=== PATIENT | male | born 1940 | race Native Hawaiian/Other Pacific Islander ===

== ENCOUNTER 2018-08-29 14:38 | Inpatient (IN) | payer OTHER ==
[2018-08-29 14:44] VITALS: BMI 15.5
--- NOTE | 2018-08-29 15:12 | ED PDOC ---
Arrival/HPI - General Time Seen by Provider: 08/29/18 15:01 Historian: Patient - History of Present Illness Narrative History of Present Illness (Text): 08/29/18 15:03 78 y/o male, pmh including htn/hld/dm/ckd, nkda, Bahamian mandarin speaking, c/o dizziness started 9pm last night. Pt. is here with the daughter in law, speaking in Bahamian mandarin, admits fatigue and dizziness, stated that he started to complain dizziness, room spinning sensation, no nausea or vomiting, no fever or chills, no chest pain shortness of breath, no palpitation, no diarrhea, no other medical or psychological complaints. Past Medical History - Provider Review Nursing Documentation Reviewed: Yes - Cardiac Hx Hypertension: Yes - Endocrine/Metabolic Hx Diabetes Mellitus Type 2: Yes - Psychiatric Hx Substance Use: No Family/Social History - Physician Review Nursing Documentation Reviewed: Yes Family/Social History: Unknown Family HX Smoking Status: Never Smoked Hx Alcohol Use: No Hx Substance Use: No Allergies/Home Meds Allergies/Adverse Reactions: Allergies No Known Allergies Allergy (Verified 08/29/18 15:02) Home Medications: Home Meds Medication Instructions Recorded Confirmed Unobtainable 08/29/18 08/29/18 Review of Systems - Review of Systems Constitutional: absent: Fatigue, Fevers Eyes: absent: Vision Changes ENT: absent: Hearing Changes Respiratory: absent: SOB, Cough Cardiovascular: absent: Chest Pain Gastrointestinal: absent: Abdominal Pain, Diarrhea, Nausea, Vomiting Musculoskeletal: absent: Arthralgias Skin: absent: Rash, Pruritis Neurological: Dizziness. absent: Headache, Focal Weakness, Gait Changes, Speech Changes, Facial Droop, Disequilibrium, Seizure Psychiatric: absent: Anxiety, Depression, Suicidal Ideation Physical Exam Vital Signs Reviewed: Yes Vital Signs Temp Pulse Resp BP Pulse Ox 08/29/18 14:41 98.3 F 75 18 133/82 100 Temperature: Afebrile Blood Pressure: Normal Pulse: Regular Respiratory Rate: Normal Appearance: Positive for: Well-Appearing, Non-Toxic, Comfortable Pain Distress: None Mental Status: Positive for: Alert and Oriented X 3 - Systems Exam Head: Present: Atraumatic, Normocephalic Pupils: Present: PERRL Extroacular Muscles: Present: EOMI Conjunctiva: Present: Normal Mouth: Present: Moist Mucous Membranes Neck: Present: Normal Range of Motion Respiratory/Chest: Present: Clear to Auscultation, Good Air Exchange. No: Respiratory Distress, Accessory Muscle Use Cardiovascular: Present: Regular Rate and Rhythm, Normal S1, S2. No: Murmurs Abdomen: No: Tenderness, Distention, Peritoneal Signs Back: Present: Normal Inspection Upper Extremity: Present: Normal Inspection. No: Cyanosis, Edema Lower Extremity: Present: Normal Inspection. No: Edema Neurological: Present: GCS=15, CN II-XII Intact, Speech Normal, Motor Func Grossly Intact, Normal Cerebellar Funct, Gait Normal, Memory Normal Skin: Present: Warm, Dry, Normal Color. No: Rashes Psychiatric: Present: Alert, Oriented x 3, Normal Insight, Normal Concentration Medical Decision Making ED Course and Treatment: 08/29/18 15:14 ICH vs. Dehydration vs. UTI vs. pneumonia -labs -ekg -ct head -chest ray -IVF/meclizine -Observe and reassess 08/29/18 16:22 -EKG: NSR @ 74 BPM, LVH, no ST elevation or depression, no T wave inversion. -CT head No acute intracranial abnormality.If there is a persistent focal neurologic deficit and an ongoing clinical concern for acute infarction, an MRI of the brain without intravenous contrast would be a more sensitive modality for evaluation of hyperacute/acute ischemic infarction. Mild chronic microangiopathic changes and mild age-related global parenchymal volume loss. Chronic lacunar infarctions in the right rasmussen radiata, right external capsule, left basal ganglia and left meng lazaro. -Chest xray Ill-defined airspace disease in the right lower lobe could represent atelectasis or pneumonia. Follow-up after medical management is recommended to ensure complete resolution. -Labs are nonsignificant except BUN 50 and creatine 2.1 with no previous comparison -UA +UTI -IV rocephine and azithromycin ordered. -NIHSS is zero -Pt. still feeling dizziness after the IVF and meclizine, no complete resolution. 08/29/18 18:29 -I spoke to the daughter and the patient, they agreed to be admitted for observation for further evaluation and treatment. 08/29/18 18:43 -I spoke to the hospitalist, Dr. Stewart, discussed about the case/labs/radiology results, still symptomatic for dizziness and risk for fall, will admit the patient for observation. - RAD Interpretation Radiology Orders: CT head: Date of service: 08/29/2018 PROCEDURE: CT HEAD WITHOUT CONTRAST. HISTORY: dizziness since 9pm COMPARISON: None available. TECHNIQUE: Axial computed tomography images were obtained through the head/brain without intravenous contrast. Radiation dose: Total exam DLP = 847.99 mGy-cm. This CT exam was performed using one or more of the following dose reduction techniques: Automated exposure control, adjustment of the mA and/or kV according to patient size, and/or use of iterative reconstruction technique. FINDINGS: HEMORRHAGE: No intracranial hemorrhage. BRAIN: There are mild chronic microangiopathic changes. There are chronic lacunar infarctions in the right rasmussen radiata, right external capsule, left basal ganglia and left meng lazaro. There is no mass, mass effect or abnormal extra- axial fluid collection. There are coarse atherosclerotic calcifications in the cavernous carotid arteries. VENTRICLES: There is mild age-related global parenchymal volume loss and proportionate enlargement of the ventricles and cortical sulci. CALVARIUM: There is no calvarial fracture or extracranial soft tissue swelling. PARANASAL SINUSES: Predominantly clear. MASTOID AIR CELLS: Predominantly clear. OTHER FINDINGS: None. IMPRESSION: No acute intracranial abnormality.If there is a persistent focal neurologic deficit and an ongoing clinical concern for acute infarction, an MRI of the brain without intravenous contrast would be a more sensitive modality for evaluation of hyperacute/acute ischemic infarction. Mild chronic microangiopathic changes and mild age-related global parenchymal volume loss. Chronic lacunar infarctions in the right rasmussen radiata, right external capsule, left basal ganglia and left meng lazaro. Chest xray: Date of service: 08/29/2018 HISTORY: dizziness COMPARISON: No prior. FINDINGS: LUNGS: The lungs are well inflated. There is ill-defined airspace disease in the right lower lobe. PLEURA: No pleural effusions or pneumothorax. CARDIOVASCULAR: The heart is normal in size. There are aortic atherosclerotic calcifications present. OSSEOUS STRUCTURES: Within normal limits for the patient's age. VISUALIZED UPPER ABDOMEN: Normal. OTHER FINDINGS: None. IMPRESSION: Ill-defined airspace disease in the right lower lobe could represent atelectasis or pneumonia. Follow-up after medical management is recommended to ensure complete resolution. Plate Maker: Radiologist NIHSS Scale ([place]) Time Performed: 17:00 - How Severe is the Stoke Baseline Level of Consciousness: 0=Alert LOC to Questions: 0=Both comments correct LOC to commands: 0=Obeys both correctly Best Gaze: 0=Normal Visual: 0=No visual loss Facial: 0=Normal Motor Arm - Left: 0=No drift Motor Arm - Right: 0=No drift Motor Leg - Left: 0=No drift Motor Leg - Right: 0=No drift Limb Ataxia: 0=Absent Sensory: 0=Normal Best Language: 0=No aphasia Dysarthia: 0=Normal articulation Extinction & Inattention (Neglect): 0=Normal, no object Score: 0 Risk Level: No Stroke Risk - PA / PILL PACKER / Resident Statement MD/DO has reviewed & agrees with the documentation as recorded. Disposition/Present on Arrival - Present on Arrival Any Indicators Present on Arrival: No History of DVT/PE: No History of Uncontrolled Diabetes: No Urinary Catheter: No History of Decub. Ulcer: No History Surgical Site Infection Following: None - Disposition Have Diagnosis and Disposition been Completed?: Yes Diagnosis: UTI (urinary tract infection), Pneumonia, Dizziness Disposition: HOSPITALIZED Disposition Time: 16:23 Patient Plan: Admission, Observation, Telemetry Patient Problems: Current Active Problems Problem Status Onset Dizziness Acute Pneumonia Acute UTI (urinary tract infection) Acute Condition: STABLE Referrals: FAMILY PROVIDER,NO [Primary Care Provider] - Follow up with primary
[2018-08-29] MEDS ORDERED: Sodium Chloride 0.9% 1,000 ML IV SCH ×2 (15:15→20:04)
[2018-08-29 16:01] LABS: BASO # 0.01 K/mm3 (0.0-2.0); BASO % 0.1 % (0.0-3.0); EOS # 0.1 (0.0-0.7); EOS % 0.8 % (1.5-5.0); HEMOGLOBIN 10.7 g/dL (14.0-18.0); LYMPH # 1.1 (1.2-3.4); LYMPH % 14.4 % (22.0-35.0); MEAN CELL VOLUME 90.3 fl (80.0-105.0); MEAN CORPUSCULAR HEMOGLOBIN 30.5 pg (25.0-35.0); MEAN CORPUSCULAR HGB CONC 33.8 g/dl (31.0-37.0); MEAN PLATELET VOLUME 9.8 fl (7.0-11.0); MONO # 0.3 (0.1-0.6); MONO % 3.7 % (1.0-6.0); PH,URINE 5.5 (4.7-8.0); RBC 3.51 10^6/uL (3.5-6.1); RED CELL DISTRIBUTION WIDTH 12.8 % (11.5-14.5); URINE BILIRUBIN NEGATIVE (NEGATIVE); URINE BLOOD NEGATIVE (NEGATIVE); URINE GLUCOSE (UA) NEGATIVE (NEGATIVE); URINE LEUKOCYTE ESTERASE SMALL Leu/uL (NEGATIVE); URINE PROTEIN 100 mg/dL (<30 mg/dL); URINE UROBILINOGEN 0.2 E.U./dL (<1 E.U./dL); WHITE BLOOD COUNT 7.5 10^3/uL (4.5-11.0)
[2018-08-29 16:04] LABS: ALB/GLOB RATIO 1.3 (1.1-1.8); ALBUMIN 4.5 g/dL (3.0-4.8); ALT/SGPT 25 U/L (7-56); AST/SGOT 21 U/L (17-59); BLOOD UREA NITROGEN 50 mg/dL (7-21); CALCIUM 10.1 mg/dL (8.4-10.5); GFR NON-AFRICAN AMERICAN 31
[2018-08-29 16:06] LABS: URINE APPEARANCE CLEAR (CLEAR); URINE COLOR YELLOW (YELLOW)
[2018-08-29] MEDS ORDERED: Sodium Chloride 0.9% 1,000 ML IV STA (16:10)
--- NOTE | 2018-08-29 16:14 | RAD ---
Date of service: 08/29/2018 HISTORY: dizziness COMPARISON: No prior. FINDINGS: LUNGS: The lungs are well inflated. There is ill-defined airspace disease in the right lower lobe. PLEURA: No pleural effusions or pneumothorax. CARDIOVASCULAR: The heart is normal in size. There are aortic atherosclerotic calcifications present. OSSEOUS STRUCTURES: Within normal limits for the patient's age. VISUALIZED UPPER ABDOMEN: Normal. OTHER FINDINGS: None. IMPRESSION: Ill-defined airspace disease in the right lower lobe could represent atelectasis or pneumonia. Follow-up after medical management is recommended to ensure complete resolution.
[2018-08-29 16:15] LABS: TROPONIN I < 0.01 ng/mL
--- NOTE | 2018-08-29 16:18 | CT ---
Date of service: 08/29/2018 PROCEDURE: CT HEAD WITHOUT CONTRAST. HISTORY: dizziness since 9pm COMPARISON: None available. TECHNIQUE: Axial computed tomography images were obtained through the head/brain without intravenous contrast. Radiation dose: Total exam DLP = 847.99 mGy-cm. This CT exam was performed using one or more of the following dose reduction techniques: Automated exposure control, adjustment of the mA and/or kV according to patient size, and/or use of iterative reconstruction technique. FINDINGS: HEMORRHAGE: No intracranial hemorrhage. BRAIN: There are mild chronic microangiopathic changes. There are chronic lacunar infarctions in the right rasmussen radiata, right external capsule, left basal ganglia and left meng lazaro. There is no mass, mass effect or abnormal extra-axial fluid collection. There are coarse atherosclerotic calcifications in the cavernous carotid arteries. VENTRICLES: There is mild age-related global parenchymal volume loss and proportionate enlargement of the ventricles and cortical sulci. CALVARIUM: There is no calvarial fracture or extracranial soft tissue swelling. PARANASAL SINUSES: Predominantly clear. MASTOID AIR CELLS: Predominantly clear. OTHER FINDINGS: None. IMPRESSION: No acute intracranial abnormality.If there is a persistent focal neurologic deficit and an ongoing clinical concern for acute infarction, an MRI of the brain without intravenous contrast would be a more sensitive modality for evaluation of hyperacute/acute ischemic infarction. Mild chronic microangiopathic changes and mild age-related global parenchymal volume loss. Chronic lacunar infarctions in the right rasmussen radiata, right external capsule, left basal ganglia and left meng lazaro.
[2018-08-29] MEDS ORDERED: cefTRIAXone 1 gm 1 GM/100 ML BAG IVPB STA (16:21)
[2018-08-29] MEDS ORDERED: Azithromycin 500MG/NS 250ml 500 MG/250 ML BAG IVPB STA (16:21)
--- NOTE | 2018-08-29 19:10 | CARD ---
APPROVED REPORT Date of service: 08/29/2018 EKG Measurement Heart [id number] <Conclusion> Normal sinus rhythm Leftward axis Left ventricular hypertrophy with repolarization abnormality Abnormal ECG
--- NOTE | 2018-08-29 19:49 | CP.PCM.HP ---
<Dagoberto Krishnamurthy - Last Filed: 08/29/18 21:12> History of Present Illness - History of Present Illness History of Present Illness: Dagoberto Krishnamurthy DO PGY1. H&P for Dr Fidelia Julien: Dizziness x1 day 78 y/o Male with PMH of HTN, HLD, DM, CKD presents to the ED accompanied by his daughter in law for dizziness x1 day. There is no family members at the bedside. [place]ian earth moving technician called and was not able to communicate with the patient. Family member called but no answer. As per ED note, patient was brought in for dizziness and that started last night with room spinning sensation. It's assoc iated with fatigue. Denies palpitations, SOB, chest pain, fever, chills, N/V/D. ROS unobtainable due to lack of proper communication, will continue to attempt to contact family for complete history. PMH: HTN, HLD, DM, CKD PSH: unknown Meds: unknown All: NKDA FH: unknown SH: no smoking/alcohol/drug use Present on Admission - Present on Admission Any Indicators Present on Admission: No Review of Systems - Review of Systems Systems not reviewed;Unavailable: Language Barrier Past Patient History - Past Social History Smoking Status: Never Smoked - CARDIAC Hx Hypertension: Yes - ENDOCRINE/METABOLIC Hx Diabetes Mellitus Type 2: Yes - PSYCHIATRIC Hx Substance Use: No - SURGICAL HISTORY Hx Surgeries: No Meds Allergies/Adverse Reactions: Allergies Allergy/AdvReac Type Severity Reaction Status Date / Time No Known Allergies Allergy Verified 08/29/18 15:02 Physical Exam - Constitutional Appears: Well, Non-toxic - Head Exam Head Exam: ATRAUMATIC, NORMAL INSPECTION, NORMOCEPHALIC - Eye Exam Eye Exam: EOMI, Normal appearance, PERRL Pupil Exam: NORMAL ACCOMODATION, PERRL - ENT Exam ENT Exam: Mucous Membranes Moist - Neck Exam Neck exam: Positive for: Normal Inspection - Respiratory Exam Respiratory Exam: Clear to Auscultation Bilateral, NORMAL BREATHING PATTERN - Cardiovascular Exam Cardiovascular Exam: REGULAR RHYTHM, +S1, +S2 - GI/Abdominal Exam GI & Abdominal Exam: Normal Bowel Sounds, Soft. absent: Tenderness - Extremities Exam Extremities exam: Positive for: normal capillary refill, normal inspection, pedal pulses present - Back Exam Back exam: NORMAL INSPECTION - Neurological Exam Neurological exam: Reflexes Normal - Psychiatric Exam Psychiatric exam: Flat Affect - Skin Skin Exam: Dry, Intact, Normal Color, Warm Results - Vital Signs Recent Vital Signs: Last Vital Signs Temp 98.3 F 08/29/18 14:41 Pulse 72 08/29/18 17:11 Resp 18 08/29/18 17:11 BP 153/69 H 08/29/18 17:11 Pulse Ox 98 08/29/18 17:11 - Labs Result Diagrams: 08/29/18 15:41 08/29/18 15:41 Labs: Laboratory Results - last 24 hr 08/29/18 08/29/18 08/29/18 15:16 15:41 15:41 WBC RBC Hgb Hct MCV MCH MCHC RDW Plt Count MPV Neut % (Auto) Lymph % (Auto) Wilkes % (Auto) Eos % (Auto) Baso % (Auto) Lymph # (Auto) Wilkes # (Auto) Eos # (Auto) Baso # (Auto) Absolute Neuts (auto) Sodium 140 Potassium 4.4 Chloride 105 Carbon Dioxide 22 Anion Gap 18 BUN 50 H Creatinine 2.1 H Est GFR ( Amer) 37 Est GFR (Non-Af Amer) 31 POC Glucose (mg/dL) 174 H Random Glucose 175 H Calcium 10.1 Magnesium 2.1 Total Bilirubin 0.2 AST 21 ALT 25 Alkaline Phosphatase 67 Troponin I < 0.01 Total Protein 7.8 Albumin 4.5 Globulin 3.3 Albumin/Globulin Ratio 1.3 Urine Color Yellow Urine Appearance Clear Urine pH 5.5 Ur Specific [place] >= 1.030 Urine Protein 100 H Urine Glucose (UA) Negative Urine Ketones Trace H Urine Blood Negative Urine Nitrate Negative Urine Bilirubin Negative Urine Urobilinogen 0.2 Ur Leukocyte Esterase Small H Urine RBC TEST NOT PERFORMED Urine WBC 5 - 10 H Ur Epithelial Cells 10 - 12 H 08/29/18 15:41 WBC 7.5 RBC 3.51 Hgb 10.7 L Hct 31.7 L MCV 90.3 MCH 30.5 MCHC 33.8 RDW 12.8 Plt Count 214 MPV 9.8 Neut % (Auto) 81.0 H Lymph % (Auto) 14.4 L Wilkes % (Auto) 3.7 Eos % (Auto) 0.8 L Baso % (Auto) 0.1 Lymph # (Auto) 1.1 L Wilkes # (Auto) 0.3 Eos # (Auto) 0.1 Baso # (Auto) 0.01 Absolute Neuts (auto) 6.09 Sodium Potassium Chloride Carbon Dioxide Anion Gap BUN Creatinine Est GFR ( Amer) Est GFR (Non-Af Amer) POC Glucose (mg/dL) Random Glucose Calcium Magnesium Total Bilirubin AST ALT Alkaline Phosphatase Troponin I Total Protein Albumin Globulin Albumin/Globulin Ratio Urine Color Urine Appearance Urine pH Ur Specific [place] Urine Protein Urine Glucose (UA) Urine Ketones Urine Blood Urine Nitrate Urine Bilirubin Urine Urobilinogen Ur Leukocyte Esterase Urine RBC Urine WBC Ur Epithelial Cells Assessment & Plan - Assessment and Plan (Free Text) Assessment: 78 y/o Mlae with PMH of HTN, HLD, DM, CKD presents to the ED for dizziness x1 day. Admitted for further work up Plan: Dizziness: -CT head: no ICH, chronic lacunar infarctions in R rasmussen radiata/ext capsule, L basal ganglia/meng lazaro -neuro check q4h -orthostatics VS -CXR: right lung consolidations PNA vs atelectasis -EKG: NSR@74, LVH w/early repolarization, Lt axis deviation -UA: +LE, WBC -Trops negative x1. continue to trend -neuro consulted, Dr Love -f/u procal, TSH, blood/urine cx h/o HTN: -patient hypertensive. unknown home meds. verify in am -hydralazine prn for SBP> 160 -amlodipine 10 mg h/o DM -accucheck -ISS-L -A1C -verify home meds HLD: -lipid profile -lipitor 20mg CKD: -BUN/Cr 50/2.1 (unknown baseline) -likely hypertensive kidney disease -Renal US Anemia: -H/H 10.7/31.7 on admission -f/u iron studies, vit B12, folate -PT/INR PPX: -DVT: lovenox, SCD -GI: not indicated -PT eval/treat -HHD/Renal diet Case reviewed and plan discussed with attending Dr Fidelia Krishnamurthy, <Sheng Mistry - Last Filed: 08/30/18 19:00> Results - Vital Signs Recent Vital Signs: Last Vital Signs Temp 97.9 F 08/30/18 16:05 Pulse 85 08/30/18 18:00 Resp 17 08/30/18 16:05 BP 123/63 08/30/18 16:05 Pulse Ox 99 08/30/18 16:05 - Labs Result Diagrams: 08/30/18 06:00 08/30/18 06:00 Labs: Laboratory Results - last 24 hr 08/29/18 08/29/18 08/29/18 20:46 21:06 21:25 WBC RBC Hgb Hct MCV MCH MCHC RDW Plt Count MPV Neut % (Auto) Lymph % (Auto) Wilkes % (Auto) Eos % (Auto) Baso % (Auto) Lymph # (Auto) Wilkes # (Auto) Eos # (Auto) Baso # (Auto) Absolute Neuts (auto) PT 11.0 INR 0.99 APTT 37.3 Sodium Potassium Chloride Carbon Dioxide Anion Gap BUN Creatinine Est GFR ( Amer) Est GFR (Non-Af Amer) POC Glucose (mg/dL) Random Glucose Calcium Phosphorus Magnesium Iron TIBC % Saturation Ferritin Total Bilirubin AST ALT Alkaline Phosphatase Troponin I Total Protein Albumin Globulin Albumin/Globulin Ratio Triglycerides Cholesterol LDL Cholesterol Direct HDL Cholesterol Vitamin B12 Folate Procalcitonin < 0.05 L TSH 3rd Generation Influenza Typ A,B (EIA) Negative for flu a/b 08/29/18 08/30/18 08/30/18 21:30 06:00 06:00 WBC RBC Hgb Hct MCV MCH MCHC RDW Plt Count MPV Neut % (Auto) Lymph % (Auto) Wilkes % (Auto) Eos % (Auto) Baso % (Auto) Lymph # (Auto) Wilkes # (Auto) Eos # (Auto) Baso # (Auto) Absolute Neuts (auto) PT INR APTT Sodium 143 Potassium 4.0 Chloride 111 H Carbon Dioxide 24 Anion Gap 12 BUN 40 H Creatinine 1.4 Est GFR ( Amer) 60 Est GFR (Non-Af Amer) 49 POC Glucose (mg/dL) 198 H Random Glucose 128 H Calcium 9.5 Phosphorus 3.5 Magnesium 2.3 H Iron 90 TIBC 276 % Saturation 33 Ferritin 27.7 Total Bilirubin 0.3 AST 29 ALT 24 Alkaline Phosphatase 73 Troponin I < 0.01 Total Protein 7.3 Albumin 4.0 Globulin 3.3 Albumin/Globulin Ratio 1.2 Triglycerides 76 Cholesterol 128 L LDL Cholesterol Direct 70 HDL Cholesterol 33 Vitamin B12 270 Folate 14.7 Procalcitonin TSH 3rd Generation Influenza Typ A,B (EIA) 08/30/18 08/30/1819 06:00 06:00 07:23 WBC 5.2 D RBC 3.55 Hgb 10.7 L Hct 32.1 L MCV 90.4 MCH 30.1 MCHC 33.3 RDW 12.7 Plt Count 201 MPV 9.7 Neut % (Auto) 75.4 H Lymph % (Auto) 19.9 L Wilkes % (Auto) 3.5 Eos % (Auto) 1.0 L Baso % (Auto) 0.2 Lymph # (Auto) 1.0 L Wilkes # (Auto) 0.2 Eos # (Auto) 0.1 Baso # (Auto) 0.01 Absolute Neuts (auto) 3.91 PT INR APTT Sodium Potassium Chloride Carbon Dioxide Anion Gap BUN Creatinine Est GFR ( Amer) Est GFR (Non-Af Amer) POC Glucose (mg/dL) 154 H Random Glucose Calcium Phosphorus Magnesium Iron TIBC % Saturation Ferritin Total Bilirubin AST ALT Alkaline Phosphatase Troponin I Total Protein Albumin Globulin Albumin/Globulin Ratio Triglycerides Cholesterol LDL Cholesterol Direct HDL Cholesterol Vitamin B12 Folate Procalcitonin TSH 3rd Generation 3.14 Influenza Typ A,B (EIA) 08/30/18 08/30/18 11:15 13:38 WBC RBC Hgb Hct MCV MCH MCHC RDW Plt Count MPV Neut % (Auto) Lymph % (Auto) Wilkes % (Auto) Eos % (Auto) Baso % (Auto) Lymph # (Auto) Wilkes # (Auto) Eos # (Auto) Baso # (Auto) Absolute Neuts (auto) PT INR APTT Sodium Potassium Chloride Carbon Dioxide Anion Gap BUN Creatinine Est GFR ( Amer) Est GFR (Non-Af Amer) POC Glucose (mg/dL) 382 H 310 H Random Glucose Calcium Phosphorus Magnesium Iron TIBC % Saturation Ferritin Total Bilirubin AST ALT Alkaline Phosphatase Troponin I Total Protein Albumin Globulin Albumin/Globulin Ratio Triglycerides Cholesterol LDL Cholesterol Direct HDL Cholesterol Vitamin B12 Folate Procalcitonin TSH 3rd Generation Influenza Typ A,B (EIA) Attending/Attestation - Attestation I have personally seen and examined this patient.: Yes I have fully participated in the care of the patient.: Yes I have reviewed all pertinent clinical information: Yes Notes (Text): 08/30/18 19:00 Seen and examined. Discussed with resident. A&P as above.
[2018-08-29 21:23] LABS: INR 0.99; PARTIAL THROMBOPLASTIN TIME 37.3 Seconds (26.9-38.3)
[2018-08-29] MEDS: Insulin Reg-LOW-Coverage SC SCH (21:45)
[2018-08-30] MEDS ORDERED: Pneumococcal 23-Valent Vaccine IM ONE (00:57)
[2018-08-30 06:49] LABS: BASO # 0.01 K/mm3 (0.0-2.0); BASO % 0.2 % (0.0-3.0); EOS # 0.1 (0.0-0.7); HEMOGLOBIN 10.7 g/dL (14.0-18.0); LYMPH % 19.9 % (22.0-35.0); MEAN CELL VOLUME 90.4 fl (80.0-105.0); MEAN CORPUSCULAR HEMOGLOBIN 30.1 pg (25.0-35.0); MEAN CORPUSCULAR HGB CONC 33.3 g/dl (31.0-37.0); MEAN PLATELET VOLUME 9.7 fl (7.0-11.0); MONO # 0.2 (0.1-0.6); MONO % 3.5 % (1.0-6.0); RBC 3.55 10^6/uL (3.5-6.1); RED CELL DISTRIBUTION WIDTH 12.7 % (11.5-14.5); WHITE BLOOD COUNT 5.2 10^3/uL (4.5-11.0)
[2018-08-30 06:51] LABS: IRON 90 ug/dL (45-180)
[2018-08-30 07:00] LABS: % IRON SATURATION 33 % (20-55); TOTAL IRON BINDING CAPACITY 276 ug/dL (261-462)
[2018-08-30 07:05] LABS: LDL CHOLESTEROL 70 mg/dL (0-129); TROPONIN I < 0.01 ng/mL
[2018-08-30 07:14] LABS: ALB/GLOB RATIO 1.2 (1.1-1.8); ALT/SGPT 24 U/L (7-56); AST/SGOT 29 U/L (17-59); BLOOD UREA NITROGEN 40 mg/dL (7-21); CALCIUM 9.5 mg/dL (8.4-10.5); GFR NON-AFRICAN AMERICAN 49; HDL CHOLESTEROL 33 mg/dL (29-60)
[2018-08-30] MEDS: Insulin Reg-LOW-Coverage SC SCH ×4 (07:30→21:47)
[2018-08-30] MEDS: Enoxaparin 40 mg Syringe SC SCH (10:28)
[2018-08-30 13:10] LABS: FERRITIN 27.7 ng/mL
[2018-08-30 13:46] LABS: FOLATE 14.7 ng/mL
--- NOTE | 2018-08-30 14:26 | CP.PCM.PN ---
Subjective - Date & Time of Evaluation Date of Evaluation: 08/30/18 Time of Evaluation: 09:40 - Subjective Subjective: Dagoberto Krishnamurthy DO PGY1 Hospitalist Progress Note for Dr Casey Patient seen and examined at bedside. Salvadorean health promotion officer used in interview. Patient appears confused and does not know where he is nor the reason for being in a hospital. Family was contacted again to come to the hospital for further information. Objective - Vital Signs/Intake and Output Vital Signs (last 24 hours): Temp Pulse Resp BP Pulse Ox 98 F 73 18 157/66 H 98 08/30/18 08:11 08/30/18 08:11 08/30/18 08:11 08/30/18 10:28 08/30/18 08:11 - Medications Medications: Current Medications Amlodipine Besylate (Norvasc) 10 mg PO DAILY [facility] Last Admin: 08/30/18 10:28 Dose: 10 mg Aspirin (Ecotrin) 81 mg PO DAILY [facility] Last Admin: 08/30/18 13:49 Dose: 81 mg Atorvastatin Calcium (Lipitor) 20 mg PO DIN [facility] Last Admin: 08/29/18 21:39 Dose: 20 mg Enoxaparin Sodium (Lovenox) 40 mg SC DAILY [facility]; Protocol Last Admin: 08/30/18 10:28 Dose: Not Given Hydralazine HCl (Apresoline) 10 mg IVP Q6 PRN PRN Reason: SBP > 180 DBP > 100 Insulin Human Regular (Humulin R Low) 0 units SC ACHS [facility]; Protocol Last Admin: 08/30/18 12:39 Dose: 7 units - Labs Labs: 08/30/18 06:00 08/30/18 06:00 PT 11.0 SECONDS (9.4-12.5) 08/29/18 21:06 INR 0.99 08/29/18 21:06 APTT 37.3 Seconds (26.9-38.3) 08/29/18 21:06 - Constitutional Appears: Non-toxic, No Acute Distress, Confused - Head Exam Head Exam: ATRAUMATIC, NORMAL INSPECTION, NORMOCEPHALIC - Eye Exam Eye Exam: EOMI, Normal appearance, PERRL Pupil Exam: NORMAL ACCOMODATION, PERRL - ENT Exam ENT Exam: Normal Exam - Neck Exam Neck Exam: Normal Inspection - Respiratory Exam Respiratory Exam: Clear to Ausculation Bilateral, NORMAL BREATHING PATTERN - Cardiovascular Exam Cardiovascular Exam: REGULAR RHYTHM, +S1, +S2 - GI/Abdominal Exam GI & Abdominal Exam: Soft, Normal Bowel Sounds. absent: Tenderness - Extremities Exam Extremities Exam: Full ROM, Normal Capillary Refill, Normal Inspection. absent: Joint Swelling, Pedal Edema - Back Exam Back Exam: NORMAL INSPECTION - Neurological Exam Neurological Exam: Altered, Awake, Normal Gait - Psychiatric Exam Psychiatric exam: Depressed, Flat Affect - Skin Skin Exam: Dry, Intact, Normal Color, Warm Assessment and Plan - Assessment and Plan (Free Text) Assessment: 78 y/o Mlae with PMH of HTN, HLD, DM, CKD presents to the ED for dizziness x1 day. Admitted for further work up Plan: Dizziness: -CT head: no ICH, chronic lacunar infarctions in R rasmussen radiata/ext capsule, L basal ganglia/meng lazaro -neuro check q4h -orthostatics VS -CXR: right lung consolidations PNA vs atelectasis -EKG: NSR@74, LVH w/early repolarization, Lt axis deviation -UA: +LE, WBC -Trops negative x2 -neuro consulted, Dr Lvoe -f/u procal, blood/urine cx -flu a/b negative h/o HTN: -patient hypertensive. unknown home meds. verify in am -hydralazine prn for SBP> 160 -amlodipine 10 mg -asa h/o DM -accucheck -ISS-L -A1C -verify home meds HLD: -lipid profile -lipitor 20mg CKD: -BUN/Cr improved from 50/2.1 on admission to 40/1.4 -likely hypertensive kidney disease -f/u renal US Anemia: -H/H 10.7/31.7 on admission -f/u iron studies, vit B12, folate, TSH wnl -PT/INR wnl PPX: -DVT: lovenx, SCD -GI: not indicated -PT eval/treat -HHD/Renal diet -manager social media referral Case reviewed and plan discussed with attending Dr Jacinto Krishnamurthy,
--- NOTE | 2018-08-30 15:24 | CP.PCM.CON ---
History of Present Illness - History of Present Illness History of Present Illness: Neurology Consultation Note: Consult requested by Dr. Casey Mr. Mckeon is a 78-year-old Yi speaking man with a past medical history of HTN, HLD, DM, CKD who was brought to the ED by his [id number], complaining of dizziness for the past day and a sensation of spinning. Non-contrast CT scan of the head was done and it showed chronic bilateral subcortical lacunar infarcts. There were no acute findings. Labs showed acute kidney injury, as well as dehydration and hyperglycemia. Phone science interpreter was used, but could not communicate effectively with the patient. History was obtained from the chart and family report. Review of Systems - Review of Systems Systems not reviewed;Unavailable: Language Barrier Past Patient History - Past Social History Smoking Status: Never Smoked - CARDIAC Hx Hypertension: Yes - ENDOCRINE/METABOLIC Hx Diabetes Mellitus Type 2: Yes - MUSCULOSKELETAL/RHEUMATOLOGICAL Hx Falls: No - PSYCHIATRIC Hx Substance Use: No - SURGICAL HISTORY Hx Surgeries: No Meds Allergies/Adverse Reactions: Allergies Allergy/AdvReac Type Severity Reaction Status Date / Time No Known Allergies Allergy Verified 08/29/18 15:02 - Medications Medications: Current Medications Amlodipine Besylate (Norvasc) 10 mg PO DAILY [facility] Last Admin: 08/30/18 10:28 Dose: 10 mg Aspirin (Ecotrin) 81 mg PO DAILY [facility] Last Admin: 08/30/18 13:49 Dose: 81 mg Atorvastatin Calcium (Lipitor) 20 mg PO DIN [facility] Last Admin: 08/29/18 21:39 Dose: 20 mg Enoxaparin Sodium (Lovenox) 40 mg SC DAILY [facility]; Protocol Last Admin: 08/30/18 10:28 Dose: Not Given Hydralazine HCl (Apresoline) 10 mg IVP Q6 PRN PRN Reason: SBP > 180 DBP > 100 Insulin Human Regular (Humulin R Low) 0 units SC ACHS [facility]; Protocol Last Admin: 08/30/18 12:39 Dose: 7 units Physical Exam - Constitutional Appears: Well - Head Exam Head Exam: ATRAUMATIC, NORMAL INSPECTION, NORMOCEPHALIC - Eye Exam Eye Exam: EOMI, Normal appearance, PERRL Pupil Exam: NORMAL ACCOMODATION, PERRL - ENT Exam ENT Exam: Mucous Membranes Moist, Normal Exam - Neck Exam Neck exam: Positive for: Normal Inspection - Respiratory Exam Respiratory Exam: Clear to Auscultation Bilateral, NORMAL BREATHING PATTERN - Cardiovascular Exam Cardiovascular Exam: REGULAR RHYTHM, +S1, +S2 - GI/Abdominal Exam GI & Abdominal Exam: Normal Bowel Sounds, Soft. absent: Tenderness - Extremities Exam Extremities exam: Positive for: normal inspection - Back Exam Back exam: NORMAL INSPECTION - Neurological Exam Neurological exam: Alert, CN II-XII Intact, Normal Gait, Oriented x3, Reflexes Normal Additional comments: Nystagmus noted on right lateral gaze. - Psychiatric Exam Psychiatric exam: Normal Affect, Normal Mood - Skin Skin Exam: Dry, Intact, Normal Color, Warm Results - Vital Signs Recent Vital Signs: Last Vital Signs Temp 98 F 08/30/18 08:11 Pulse 73 08/30/18 08:11 Resp 18 08/30/18 08:11 BP 157/66 H 08/30/18 10:28 Pulse Ox 98 08/30/18 08:11 - Labs Result Diagrams: 08/30/18 06:00 08/30/18 06:00 Labs: Laboratory Results - last 24 hr 08/29/18 08/29/18 08/29/18 15:16 15:41 15:41 WBC RBC Hgb Hct MCV MCH MCHC RDW Plt Count MPV Neut % (Auto) Lymph % (Auto) [place] % (Auto) Eos % (Auto) Baso % (Auto) Lymph # (Auto) [place] # (Auto) Eos # (Auto) Baso # (Auto) Absolute Neuts (auto) PT INR APTT Sodium 140 Potassium 4.4 Chloride 105 Carbon Dioxide 22 Anion Gap 18 BUN 50 H Creatinine 2.1 H Est GFR ( Amer) 37 Est GFR (Non-Af Amer) 31 POC Glucose (mg/dL) 174 H Random Glucose 175 H Calcium 10.1 Phosphorus Magnesium 2.1 Iron TIBC % Saturation Ferritin Total Bilirubin 0.2 AST 21 ALT 25 Alkaline Phosphatase 67 Troponin I < 0.01 Total Protein 7.8 Albumin 4.5 Globulin 3.3 Albumin/Globulin Ratio 1.3 Triglycerides Cholesterol LDL Cholesterol Direct HDL Cholesterol Vitamin B12 Folate Procalcitonin TSH 3rd Generation Urine Color Yellow Urine Appearance Clear Urine pH 5.5 Ur Specific [place] >= 1.030 Urine Protein 100 H Urine Glucose (UA) Negative Urine Ketones Trace H Urine Blood Negative Urine Nitrate Negative Urine Bilirubin Negative Urine Urobilinogen 0.2 Ur Leukocyte Esterase Small H Urine RBC TEST NOT PERFORMED Urine WBC 5 - 10 H Ur Epithelial Cells 10 - 12 H Influenza Typ A,B (EIA) 08/29/18 08/29/18 08/29/18 15:41 20:46 21:06 WBC 7.5 RBC 3.51 Hgb 10.7 L Hct 31.7 L MCV 90.3 MCH 30.5 MCHC 33.8 RDW 12.8 Plt Count 214 MPV 9.8 Neut % (Auto) 81.0 H Lymph % (Auto) 14.4 L [place] % (Auto) 3.7 Eos % (Auto) 0.8 L Baso % (Auto) 0.1 Lymph # (Auto) 1.1 L [place] # (Auto) 0.3 Eos # (Auto) 0.1 Baso # (Auto) 0.01 Absolute Neuts (auto) 6.09 PT 11.0 INR 0.99 APTT 37.3 Sodium Potassium Chloride Carbon Dioxide Anion Gap BUN Creatinine Est GFR ( Amer) Est GFR (Non-Af Amer) POC Glucose (mg/dL) Random Glucose Calcium Phosphorus Magnesium Iron TIBC % Saturation Ferritin Total Bilirubin AST ALT Alkaline Phosphatase Troponin I Total Protein Albumin Globulin Albumin/Globulin Ratio Triglycerides Cholesterol LDL Cholesterol Direct HDL Cholesterol Vitamin B12 Folate Procalcitonin TSH 3rd Generation Urine Color Urine Appearance Urine pH Ur Specific [place] Urine Protein Urine Glucose (UA) Urine Ketones Urine Blood Urine Nitrate Urine Bilirubin Urine Urobilinogen Ur Leukocyte Esterase Urine RBC Urine WBC Ur Epithelial Cells Influenza Typ A,B (EIA) Negative for flu a/b 08/29/18 08/29/18 08/30/18 21:25 21:30 06:00 WBC RBC Hgb Hct MCV MCH MCHC RDW Plt Count MPV Neut % (Auto) Lymph % (Auto) [place] % (Auto) Eos % (Auto) Baso % (Auto) Lymph # (Auto) [place] # (Auto) Eos # (Auto) Baso # (Auto) Absolute Neuts (auto) PT INR APTT Sodium 143 Potassium 4.0 Chloride 111 H Carbon Dioxide 24 Anion Gap 12 BUN 40 H Creatinine 1.4 Est GFR ( Amer) 60 Est GFR (Non-Af Amer) 49 POC Glucose (mg/dL) 198 H Random Glucose 128 H Calcium 9.5 Phosphorus 3.5 Magnesium 2.3 H Iron TIBC % Saturation Ferritin 27.7 Total Bilirubin 0.3 AST 29 ALT 24 Alkaline Phosphatase 73 Troponin I < 0.01 Total Protein 7.3 Albumin 4.0 Globulin 3.3 Albumin/Globulin Ratio 1.2 Triglycerides 76 Cholesterol 128 L LDL Cholesterol Direct 70 HDL Cholesterol 33 Vitamin B12 270 Folate 14.7 Procalcitonin < 0.05 L TSH 3rd Generation Urine Color Urine Appearance Urine pH Ur Specific [place] Urine Protein Urine Glucose (UA) Urine Ketones Urine Blood Urine Nitrate Urine Bilirubin Urine Urobilinogen Ur Leukocyte Esterase Urine RBC Urine WBC Ur Epithelial Cells Influenza Typ A,B (EIA) 08/30/18 08/30/18 08/30/18 06:00 06:00 06:00 WBC 5.2 D RBC 3.55 Hgb 10.7 L Hct 32.1 L MCV 90.4 MCH 30.1 MCHC 33.3 RDW 12.7 Plt Count 201 MPV 9.7 Neut % (Auto) 75.4 H Lymph % (Auto) 19.9 L [place] % (Auto) 3.5 Eos % (Auto) 1.0 L Baso % (Auto) 0.2 Lymph # (Auto) 1.0 L [place] # (Auto) 0.2 Eos # (Auto) 0.1 Baso # (Auto) 0.01 Absolute Neuts (auto) 3.91 PT INR APTT Sodium Potassium Chloride Carbon Dioxide Anion Gap BUN Creatinine Est GFR ( Amer) Est GFR (Non-Af Amer) POC Glucose (mg/dL) Random Glucose Calcium Phosphorus Magnesium Iron 90 TIBC 276 % Saturation 33 Ferritin Total Bilirubin AST ALT Alkaline Phosphatase Troponin I Total Protein Albumin Globulin Albumin/Globulin Ratio Triglycerides Cholesterol LDL Cholesterol Direct HDL Cholesterol Vitamin B12 Folate Procalcitonin TSH 3rd Generation 3.14 Urine Color Urine Appearance Urine pH Ur Specific [place] Urine Protein Urine Glucose (UA) Urine Ketones Urine Blood Urine Nitrate Urine Bilirubin Urine Urobilinogen Ur Leukocyte Esterase Urine RBC Urine WBC Ur Epithelial Cells Influenza Typ A,B (EIA) 08/30/18 08/30/18 08/30/18 07:23 11:15 13:38 WBC RBC Hgb Hct MCV MCH MCHC RDW Plt Count MPV Neut % (Auto) Lymph % (Auto) [place] % (Auto) Eos % (Auto) Baso % (Auto) Lymph # (Auto) [place] # (Auto) Eos # (Auto) Baso # (Auto) Absolute Neuts (auto) PT INR APTT Sodium Potassium Chloride Carbon Dioxide Anion Gap BUN Creatinine Est GFR ( Amer) Est GFR (Non-Af Amer) POC Glucose (mg/dL) 154 H 382 H 310 H Random Glucose Calcium Phosphorus Magnesium Iron TIBC % Saturation Ferritin Total Bilirubin AST ALT Alkaline Phosphatase Troponin I Total Protein Albumin Globulin Albumin/Globulin Ratio Triglycerides Cholesterol LDL Cholesterol Direct HDL Cholesterol Vitamin B12 Folate Procalcitonin TSH 3rd Generation Urine Color Urine Appearance Urine pH Ur Specific [place] Urine Protein Urine Glucose (UA) Urine Ketones Urine Blood Urine Nitrate Urine Bilirubin Urine Urobilinogen Ur Leukocyte Esterase Urine RBC Urine WBC Ur Epithelial Cells Influenza Typ A,B (EIA) Assessment & Plan (1) Vertigo Assessment and Plan: Considering the patient's risk factors for ischemic stroke and the CT scan of the head as well as the symptoms and history provided, there is risk for posterior circulation ischemia or vertebro-basilar insufficiency. I recommend the followin. MRI brain without contrast and MRA of the head/neck without contrast 2. Echocardiogram 3. Aspirin 81 mg daily and Plavix 75 mg daily 4. Lipitor 40 mg daily 5. Fluids with NS at 100 mL/hr 6. Permissive HTN (only treat BP higher than 220/110 mm Hg for the next 24 hours) 7. PT/OT eval and treatment with vestibular rehab 8. Check lipid panel, HbA1c, b12, folate, TSH, T3/4, and vitamin D levels 9. Case management consult Thank you for this consultation. Status: Acute
[2018-08-30] MEDS ORDERED: Sodium Chloride 0.9% 1,000 ML IV SCH (16:15)
--- NOTE | 2018-08-30 16:21 | CP.PCM.PN ---
<NickolasRell - Last Filed: 08/30/18 16:09> Subjective - Date & Time of Evaluation Date of Evaluation: 08/30/18 Time of Evaluation: 16:09 - Subjective Subjective: Medicine progress note - Nickolas PGY - 2 Patient seen and examined at bedside with no acute overnight events. Patient currently denies any complaints and states he would like to go home. Of note - had an extensive discussion with patient's gifzytko-ka-tnc. She is expressing genuine concern about her npfdke-ea-cni's medical issues. She does state, however, that patient did not hydrate properly yesterday and had poor po intake when they went out shopping. She states that patient does have frequency from time to time even though he does not drink much water. Patient sees a doctor in [facility]. Patient was admitted from 08/23 to 08/28 with similar complaints of dizziness and syncope, and was discharged from [facility] with a diagnosis of orthostatic hypotension. Patient's PMD: Dr. Amy Maradiaga Cowavdyz-mj-tdh's phone number: [phone] Home Meds: Norvasc 10 Chlorthalidone 25 ASA 81 Lisinopril 20 Metformin 1000 BID Atorvastatin 40 Objective - Vital Signs/Intake and Output Vital Signs (last 24 hours): Temp Pulse Resp BP Pulse Ox 97.9 F 70 17 123/63 99 08/30/18 16:05 08/30/18 16:05 08/30/18 16:05 08/30/18 16:05 08/30/18 16:05 - Medications Medications: Current Medications Amlodipine Besylate (Norvasc) 10 mg PO DAILY [facility] Last Admin: 08/30/18 10:28 Dose: 10 mg Aspirin (Ecotrin) 81 mg PO DAILY [facility] Last Admin: 08/30/18 13:49 Dose: 81 mg Atorvastatin Calcium (Lipitor) 40 mg PO DIN [facility] Clopidogrel Bisulfate (Plavix) 75 mg PO DAILY [facility] Enoxaparin Sodium (Lovenox) 40 mg SC DAILY [facility]; Protocol Last Admin: 08/30/18 10:28 Dose: Not Given Hydralazine HCl (Apresoline) 10 mg IVP Q6 PRN PRN Reason: SBP > 180 DBP > 100 Sodium Chloride (Sodium Chloride 0.9%) 1,000 mls @ 100 mls/hr IV .Q10H [facility] Insulin Human Regular (Humulin R Low) 0 units SC ACHS [facility]; Protocol Last Admin: 08/30/18 12:39 Dose: 7 units - Labs Labs: 08/30/18 06:00 08/30/18 06:00 PT 11.0 SECONDS (9.4-12.5) 08/29/18 21:06 INR 0.99 08/29/18 21:06 APTT 37.3 Seconds (26.9-38.3) 08/29/18 21:06 - Constitutional Appears: Well - Head Exam Head Exam: ATRAUMATIC, NORMAL INSPECTION, NORMOCEPHALIC - Eye Exam Eye Exam: EOMI, Normal appearance, PERRL Pupil Exam: NORMAL ACCOMODATION, PERRL - ENT Exam ENT Exam: Mucous Membranes Moist, Normal Exam - Neck Exam Neck Exam: Full ROM, Normal Inspection. absent: Lymphadenopathy - Respiratory Exam Respiratory Exam: Clear to Ausculation Bilateral, NORMAL BREATHING PATTERN - Cardiovascular Exam Cardiovascular Exam: REGULAR RHYTHM, +S1, +S2. absent: Murmur - GI/Abdominal Exam GI & Abdominal Exam: Soft, Normal Bowel Sounds. absent: Tenderness - Extremities Exam Extremities Exam: Full ROM, Normal Capillary Refill, Normal Inspection. absent: Joint Swelling, Pedal Edema - Back Exam Back Exam: NORMAL INSPECTION - Neurological Exam Neurological Exam: Alert, Awake, CN II-XII Intact, Normal Gait, Oriented x3 - Psychiatric Exam Psychiatric exam: Normal Affect, Normal Mood - Skin Skin Exam: Dry, Intact, Normal Color, Warm Assessment and Plan - Assessment and Plan (Free Text) Assessment: 78 M with medical hx of DM 2 and HTN presenting with dizziness. Given patient's labs and recent admission to [facility], patient's dizziness is most likely 2/2 dehydration and poor po intake; however, neurology input is appreciated and we must also rule out VBI and posterior circulation issues. EKG and tropes have been negative. Plan Dizziness, possibly 2/2 VBI vs Orthostatics vs Poor po intake HTN DM AMANDA, likely 2/2 poor po intake We will allow for permissive hypertension and we appreciate neuro recommendat ions. We will obtain ECHO, MRA, MRI as well. Patient will be adequately hydrated and we will also obtain orthostatics. For patient's HTN, we will currently hold off on home medications, but will add hydralazine prn for BP of 220/120. For patient's DM2, we will continue sliding scale insulin. For HLD, we will continue with Lipitor 40, his home medications. Patient's AMANDA is resolving, and we will continue to avoid nephrotoxic agents and provide fluid hydration <Christal Casey - Last Filed: 08/31/18 07:08> Objective - Vital Signs/Intake and Output Vital Signs (last 24 hours): Temp Pulse Resp BP Pulse Ox 97.9 F 81 17 123/63 99 08/30/18 16:05 08/31/18 06:00 08/30/18 16:05 08/30/18 16:05 08/30/18 16:05 Intake and Output: 08/31/18 08/31/18 06:59 18:59 Intake Total 1720 Balance 1720 - Medications Medications: Current Medications Amlodipine Besylate (Norvasc) 10 mg PO DAILY [facility] Last Admin: 08/30/18 10:28 Dose: 10 mg Aspirin (Ecotrin) 81 mg PO DAILY [facility] Last Admin: 08/30/18 13:49 Dose: 81 mg Atorvastatin Calcium (Lipitor) 40 mg PO DIN [facility] Last Admin: 08/30/18 18:14 Dose: 40 mg Clopidogrel Bisulfate (Plavix) 75 mg PO DAILY [facility] Last Admin: 08/30/18 18:14 Dose: 75 mg Enoxaparin Sodium (Lovenox) 40 mg SC DAILY [facility]; Protocol Last Admin: 08/30/18 10:28 Dose: Not Given Hydralazine HCl (Apresoline) 10 mg IVP Q6 PRN PRN Reason: SBP > 180 DBP > 100 Sodium Chloride (Sodium Chloride 0.9%) 1,000 mls @ 100 mls/hr IV .Q10H [facility] Last Admin: 08/30/18 21:48 Dose: 100 mls/hr Insulin Human Regular (Humulin R Low) 0 units SC ACHS [facility]; Protocol Last Admin: 08/30/18 21:47 Dose: Not Given - Labs Labs: 08/30/18 06:00 08/30/18 06:00 PT 11.0 SECONDS (9.4-12.5) 08/29/18 21:06 INR 0.99 08/29/18 21:06 APTT 37.3 Seconds (26.9-38.3) 08/29/18 21:06 Attending/Attestation - Attestation I have personally seen and examined this patient.: Yes I have fully participated in the care of the patient.: Yes I have reviewed all pertinent clinical information, including history, physical exam and plan: Yes Notes (Text): 08/30/18 78 year old male with past medical history of hypertension and diabetes who presented with complaint of dizziness. Found to have uncontrolled hypertension and AMANDA. Daughter also states patient had recent admission for similar complaints found to have orthostatic hypotension. Patient was started on IVF with improvement of renal function. CT head was reviewed. Neurology evaluation was appreciated who requested for MRI/MRA/echocardiogram. Continue with aspirin and statin. PT evaluation was appreciated. Will repeat labs in AM. Patient is on hydralazine prn and norvasc. Consider ALICE-I if renal function continues to improve. Check orthostatics. Request prior record from recent hospitalization. UA/CXR reviewed however patient does not have symptoms of UTI or pneumonia. Christal Casey MD Hospitalist.
[2018-08-31 07:00] LABS: BASO # 0.01 K/mm3 (0.0-2.0); BASO % 0.2 % (0.0-3.0); EOS % 0.7 % (1.5-5.0); HEMOGLOBIN 10.5 g/dL (14.0-18.0); LYMPH # 0.8 (1.2-3.4); LYMPH % 12.7 % (22.0-35.0); MEAN CORPUSCULAR HEMOGLOBIN 30.3 pg (25.0-35.0); MEAN CORPUSCULAR HGB CONC 33.3 g/dl (31.0-37.0); MEAN PLATELET VOLUME 9.5 fl (7.0-11.0); MONO # 0.1 (0.1-0.6); MONO % 2.3 % (1.0-6.0); RBC 3.46 10^6/uL (3.5-6.1); RED CELL DISTRIBUTION WIDTH 12.7 % (11.5-14.5)
[2018-08-31 07:17] LABS: LDL CHOLESTEROL 66 mg/dL (0-129)
[2018-08-31 07:23] LABS: FREE T4 1.25 ng/dL (0.78-2.19)
[2018-08-31] MEDS: Insulin Reg-LOW-Coverage SC SCH ×4 (07:30→21:28)
[2018-08-31 07:37] LABS: T3 1.17 ng/mL (0.97-1.69)
[2018-08-31 08:04] LABS: ALB/GLOB RATIO 1.2 (1.1-1.8); ALT/SGPT 22 U/L (7-56); AST/SGOT 31 U/L (17-59); BLOOD UREA NITROGEN 30 mg/dL (7-21); CALCIUM 9.4 mg/dL (8.4-10.5); GFR NON-AFRICAN AMERICAN 54; HDL CHOLESTEROL 34 mg/dL (29-60)
--- NOTE | 2018-08-31 10:16 | MRI ---
Date of service: 08/30/2018 PROCEDURE: Magnetic Resonance Angiography Brain HISTORY: VBI COMPARISON: None available. TECHNIQUE: 3D time of flight MR angiography of the intracranial arteries was performed. Rotating maximum intensity projection images were generated. FINDINGS: INTERNAL CAROTID ARTERIES: Unremarkable. The skull base, petrous, cavernous and supraclinoid segments are bilaterally widely patient. ANTERIOR CEREBRAL ARTERIES: Unremarkable. A1 and A2 segments are widely patent. Smaller distal branches unremarkable, as visualized. MIDDLE CEREBRAL ARTERIES: Unremarkable. M1 and M2 segments are widely patent. Perisylvian branches grossly symmetric. POSTERIOR CIRCULATION: Basilar Artery: Unremarkable. Distal Vertebral Arteries: Unremarkable. Posterior Cerebral Arteries: Unremarkable. Posterior Inferior Cerebellar Arteries: Unremarkable. ANEURYSM/ VASCULAR MALFORMATIONS: None. OTHER FINDINGS: None. IMPRESSION: Unremarkable MR angiography of the brain.
[2018-08-31] MEDS: Enoxaparin 40 mg Syringe SC SCH (10:47)
--- NOTE | 2018-08-31 12:08 | MRI ---
Date of service: 08/30/2018 PROCEDURE: MRI BRAIN WITHOUT CONTRAST HISTORY: VBI COMPARISON: None available. TECHNIQUE: Multiplanar, multisequence MR images of the brain were obtained without intravenous contrast enhancement. FINDINGS: HEMORRHAGE: None DWI: Suspect small acute left infarct in the left periatrial white matter measuring 4 millimeters. No mass effect. BRAIN PARENCHYMA: No mass effect or edema. Generalized age-appropriate parenchymal atrophy. Bilateral periventricular white matter ischemic disease. Chronic left pontine ischemia. VENTRICLES: Unremarkable. No hydrocephalus. CRANIUM: Unremarkable. ORBITS: Grossly unremarkable. PARANASAL SINUSES/MASTOIDS: Clear VASCULAR SYSTEM: Skull base flow voids intact. OTHER FINDINGS: None. IMPRESSION: Suspect small acute left infarct in the left periatrial white matter measuring 4 millimeters. No mass effect.
--- NOTE | 2018-08-31 12:11 | MRI ---
Date of service: 08/30/2018 PROCEDURE: MR Angiography of the neck without contrast HISTORY: VBI COMPARISON: None available. TECHNIQUE: Rotating 3D maximum intensity projection images of the cervical carotid and vertebral arteries were generated. FINDINGS: RIGHT CAROTID ARTERIES: Common Carotid Artery: Normal. Carotid Bifurcation: Normal. Internal Carotid Artery:Normal. External Carotid Artery (proximal branches): Normal. LEFT CAROTID ARTERIES: Common Carotid Artery: Normal. Carotid Bifurcation: Normal. Internal Carotid Artery:Normal. External Carotid Artery (proximal branches): Normal. VERTEBRAL ARTERIES: Right Vertebral Artery: Normal. Left Vertebral Artery: Normal. OTHER FINDINGS: None. IMPRESSION: Normal MR Angiography of the neck.
--- NOTE | 2018-08-31 12:36 | CP.PCM.PN ---
<Quinton Lyons - Last Filed: 08/31/18 12:54> Subjective - Date & Time of Evaluation Date of Evaluation: 08/31/18 Time of Evaluation: 09:15 - Subjective Subjective: Quinton Lyons DO, PGY-2: Progress Note for Dr. Casey Patient was seen and examined at bedside. [employer] was used. He denies feeling any dizziness, weakness, or light headedness. 1:1 was discontinued given patient was not getting out of bed without assistance from nursing anymore. No adverse events noted overnight. Objective - Vital Signs/Intake and Output Vital Signs (last 24 hours): Temp Pulse Resp BP Pulse Ox 99.6 F 81 20 195/77 H 97 08/31/18 08:19 08/31/18 08:19 08/31/18 08:19 08/31/18 08:19 08/31/18 08:19 Intake and Output: 08/31/18 08/31/18 06:59 18:59 Intake Total 1720 Balance 1720 - Medications Medications: Current Medications Amlodipine Besylate (Norvasc) 10 mg PO DAILY [facility] Last Admin: 08/30/18 10:28 Dose: 10 mg Aspirin (Ecotrin) 81 mg PO DAILY [facility] Last Admin: 08/31/18 10:47 Dose: 81 mg Atorvastatin Calcium (Lipitor) 40 mg PO DIN [facility] Last Admin: 08/30/18 18:14 Dose: 40 mg Clopidogrel Bisulfate (Plavix) 75 mg PO DAILY [facility] Last Admin: 08/31/18 10:47 Dose: 75 mg Enoxaparin Sodium (Lovenox) 40 mg SC DAILY [facility]; Protocol Last Admin: 08/31/18 10:47 Dose: 40 mg Hydralazine HCl (Apresoline) 10 mg IVP Q6 PRN PRN Reason: SBP > 180 DBP > 100 Insulin Human Regular (Humulin R Low) 0 units SC [facility]; Protocol Last Admin: 08/30/18 21:47 Dose: Not Given - Labs Labs: 08/31/18 06:30 08/31/18 06:30 PT 11.0 SECONDS (9.4-12.5) 08/29/18 21:06 INR 0.99 08/29/18 21:06 APTT 37.3 Seconds (26.9-38.3) 08/29/18 21:06 - Constitutional Appears: Well, Non-toxic - Head Exam Head Exam: ATRAUMATIC, NORMOCEPHALIC - Eye Exam Eye Exam: EOMI, Normal appearance - ENT Exam ENT Exam: Mucous Membranes Moist - Neck Exam Neck Exam: Normal Inspection - Respiratory Exam Respiratory Exam: Clear to Ausculation Bilateral, NORMAL BREATHING PATTERN. absent: Accessory Muscle Use - Cardiovascular Exam Cardiovascular Exam: RRR, +S1, +S2 - GI/Abdominal Exam GI & Abdominal Exam: Soft, Normal Bowel Sounds - Extremities Exam Extremities Exam: Normal Inspection. absent: Calf Tenderness - Neurological Exam Neurological Exam: Alert, Awake, Oriented x3 Neuro motor strength exam: Left Upper Extremity: 5, Right Upper Extremity: 5, Left Lower Extremity: 5, Right Lower Extremity: 5 - Psychiatric Exam Psychiatric exam: Normal Affect, Normal Mood - Skin Skin Exam: Dry, Intact, Normal Color, Warm Assessment and Plan - Assessment and Plan (Free Text) Assessment: 78 year old male with a past medical history of DM II, hypertension, who presented with dizziness. Plan: 1) Stroke - MRI of the brain reports suspect small acute left infarct in the left p eriatrial white matter measuring 4 millimeters along with chronic ischemia in the pontine region and microvascular changes. - MRA head and neck unremarkable - Continue aspirin 81 and plavix 75 daily - Echocardiogram ordered - Permissive Hypertension to be stopped at 17:00 today - Physical therapy - Neurology is following, Dr. Love 2) DM II - HgbA1c was 7.2 - Continue with insulin sliding scale - Holding home metformin 3) AMANDA - 2.1 to 1.3 today - Discontinue fluids - Avoid nephrotoxins - Strict I and O's 4) Hypertension in the setting of orthostatic hypotension - Resume home ACEI after 24 hours of permissive hypertension for stroke (17:00) today - Holding chlorthalidone 25 mg and Amlodipine 10 mg 5) DVT prophylaxis - Lovenox 40 mg Daily 6) Dyslipidemia - Atorvastatin 40 mg HS Case was reviewed and discussed with attending physician, Dr. Casey <Christal Casey - Last Filed: 08/31/18 13:37> Objective - Vital Signs/Intake and Output Vital Signs (last 24 hours): Temp Pulse Resp BP Pulse Ox 99.6 F 81 20 195/77 H 97 08/31/18 08:19 08/31/18 08:19 08/31/18 08:19 08/31/18 08:19 08/31/18 08:19 Intake and Output: 08/31/18 08/31/18 06:59 18:59 Intake Total 1720 Balance 1720 - Medications Medications: Current Medications Amlodipine Besylate (Norvasc) 10 mg PO DAILY [facility] Last Admin: 08/30/18 10:28 Dose: 10 mg Aspirin (Ecotrin) 81 mg PO DAILY [facility] Last Admin: 08/31/18 10:47 Dose: 81 mg Atorvastatin Calcium (Lipitor) 40 mg PO DIN [facility] Last Admin: 08/30/18 18:14 Dose: 40 mg Clopidogrel Bisulfate (Plavix) 75 mg PO DAILY [facility] Last Admin: 08/31/18 10:47 Dose: 75 mg Enoxaparin Sodium (Lovenox) 40 mg SC DAILY [facility]; Protocol Last Admin: 08/31/18 10:47 Dose: 40 mg Hydralazine HCl (Apresoline) 10 mg IVP Q6 PRN PRN Reason: SBP > 180 DBP > 100 Insulin Human Regular (Humulin R Low) 0 units SC [facility]; Protocol Last Admin: 08/30/18 21:47 Dose: Not Given Lisinopril (Zestril) 20 mg PO DAILY [facility] - Labs Labs: 08/31/18 06:30 08/31/18 06:30 PT 11.0 SECONDS (9.4-12.5) 08/29/18 21:06 INR 0.99 08/29/18 21:06 APTT 37.3 Seconds (26.9-38.3) 08/29/18 21:06 Attending/Attestation - Attestation I have personally seen and examined this patient.: Yes I have fully participated in the care of the patient.: Yes I have reviewed all pertinent clinical information, including history, physical exam and plan: Yes Notes (Text): 08/31/18 13:33 78 year old male with past medical history of hypertension and diabetes who presented with complaint of dizziness. Found to have uncontrolled hypertension and AMANDA. Daughter also states patient had recent admission for similar complaints found to have orthostatic hypotension. Request prior record from recent hospitalization. Patient was started on IVF with improvement of renal function. Orthostatics positive yesterday as well. Chlorthalidone and norvasc are held. Can consider resuming lisinopril if patient is hypertensive. CT head was reviewed. MRA H/N was negative. MRI brain showed small acute left infarct in the left periatrial white matter. Echocardiogram is pending. Patient is on aspirin, plavix and statin. Neurology and PT are following. UA/CXR reviewed however patient does not have symptoms of UTI or pneumonia. Christal Casey MD Hospitalist.
[2018-09-01 06:15] LABS: BASO # 0.01 K/mm3 (0.0-2.0); BASO % 0.2 % (0.0-3.0); EOS # 0.1 (0.0-0.7); EOS % 1.4 % (1.5-5.0); HEMOGLOBIN 10.4 g/dL (14.0-18.0); LYMPH % 17.8 % (22.0-35.0); MEAN CELL VOLUME 91.5 fl (80.0-105.0); MEAN CORPUSCULAR HEMOGLOBIN 30.4 pg (25.0-35.0); MEAN CORPUSCULAR HGB CONC 33.2 g/dl (31.0-37.0); MEAN PLATELET VOLUME 9.4 fl (7.0-11.0); MONO # 0.2 (0.1-0.6); MONO % 3.3 % (1.0-6.0); RBC 3.42 10^6/uL (3.5-6.1); RED CELL DISTRIBUTION WIDTH 12.7 % (11.5-14.5); WHITE BLOOD COUNT 5.8 10^3/uL (4.5-11.0)
[2018-09-01 07:15] LABS: ALB/GLOB RATIO 1.1 (1.1-1.8); ALBUMIN 3.8 g/dL (3.0-4.8); CALCIUM 9.6 mg/dL (8.4-10.5)
[2018-09-01 08:09] VITALS: O2SAT 98
[2018-09-01] MEDS: Insulin Reg-LOW-Coverage SC SCH ×4 (08:11→21:44)
[2018-09-01] MEDS ORDERED: Sodium Chloride 0.9% 1,000 ML IV SCH (08:45)
[2018-09-01] MEDS: Enoxaparin 40 mg Syringe SC SCH (09:35)
[2018-09-01] MEDS ORDERED: cefTRIAXone 1 gm 1 GM/100 ML BAG IVPB SCH (10:00)
--- NOTE | 2018-09-01 12:22 | CP.PCM.PN ---
<NickolasRell Christian - Last Filed: 09/01/18 12:12> Subjective - Date & Time of Evaluation Date of Evaluation: 09/01/18 Time of Evaluation: 12:12 - Subjective Subjective: Medicine progress note - Nickolas PGY - 2 Patient seen and examined at bedside. Patient feeling well today, no acute complaints; had ECHO done this AM. No acute overnight events. Patient more alert and oriented today. Objective - Vital Signs/Intake and Output Vital Signs (last 24 hours): Temp Pulse Resp BP Pulse Ox 98.8 F 72 20 215/80 H 98 09/01/18 08:09 09/01/18 08:09 09/01/18 08:09 09/01/18 08:09 09/01/18 08:09 Intake and Output: 09/01/18 09/01/18 06:59 18:59 Intake Total 1440 Balance 1440 - Medications Medications: Current Medications Amlodipine Besylate (Norvasc) 5 mg PO DAILY [facility] Last Admin: 09/01/18 09:35 Dose: 5 mg Aspirin (Ecotrin) 81 mg PO DAILY [facility] Last Admin: 09/01/18 09:35 Dose: 81 mg Atorvastatin Calcium (Lipitor) 40 mg PO DIN [facility] Last Admin: 08/31/18 17:09 Dose: 40 mg Clopidogrel Bisulfate (Plavix) 75 mg PO DAILY [facility] Last Admin: 09/01/18 09:35 Dose: 75 mg Enoxaparin Sodium (Lovenox) 30 mg SC DAILY [facility]; Protocol Hydralazine HCl (Apresoline) 10 mg IVP Q6 PRN PRN Reason: SBP > 180 DBP > 100 Last Admin: 09/01/18 09:07 Dose: 10 mg Ceftriaxone Sodium (Rocephin 1 Gram Ivpb) 1 gm in 100 mls @ 100 mls/hr IVPB [facility]ILY [facility] Last Admin: 09/01/18 09:34 Dose: 100 mls/hr Sodium Chloride (Sodium Chloride 0.45%) 1,000 mls @ 100 mls/hr IV .Q10H [facility] Stop: 09/02/18 23:59 Insulin Human Regular (Humulin R Low) 0 units SC [facility]; Protocol Last Admin: 08/31/18 21:28 Dose: Not Given Lisinopril (Zestril) 20 mg PO DAILY [facility] Last Admin: 09/01/18 09:35 Dose: 20 mg - Labs Labs: 09/01/18 05:30 09/01/18 05:30 PT 11.0 SECONDS (9.4-12.5) 08/29/18 21:06 INR 0.99 08/29/18 21:06 APTT 37.3 Seconds (26.9-38.3) 08/29/18 21:06 - Constitutional Appears: Well - Head Exam Head Exam: ATRAUMATIC, NORMAL INSPECTION, NORMOCEPHALIC - Eye Exam Eye Exam: EOMI, Normal appearance, PERRL Pupil Exam: NORMAL ACCOMODATION, PERRL - ENT Exam ENT Exam: Mucous Membranes Moist, Normal Exam - Neck Exam Neck Exam: Full ROM, Normal Inspection. absent: Lymphadenopathy - Respiratory Exam Respiratory Exam: Clear to Ausculation Bilateral, NORMAL BREATHING PATTERN - Cardiovascular Exam Cardiovascular Exam: REGULAR RHYTHM, +S1, +S2. absent: Murmur - GI/Abdominal Exam GI & Abdominal Exam: Soft, Normal Bowel Sounds. absent: Tenderness - Extremities Exam Extremities Exam: Full ROM, Normal Capillary Refill, Normal Inspection. absent: Joint Swelling, Pedal Edema - Back Exam Back Exam: NORMAL INSPECTION - Neurological Exam Neurological Exam: Alert, Awake, CN II-XII Intact, Normal Gait, Oriented x3 - Psychiatric Exam Psychiatric exam: Normal Affect, Normal Mood - Skin Skin Exam: Dry, Intact, Normal Color, Warm Assessment and Plan - Assessment and Plan (Free Text) Assessment: 78 M with medical hx of DM 2 and HTN presenting with dizziness. Given patient's labs and recent admission to [facility], patient's dizziness is most likely 2/2 dehydration and poor po intake; however, neurology input is appreciated and we must also rule out VBI and posterior circulation issues. EKG and tropes have been negative. MRI revealed L periatrial acute lacunar stroke, which could be contributing to patient's visits. Of note, patient' CR bumped back up today and his GFR and Creatinine clearance are low; I am worried about the etiology of the AMANDA and would advise against stopping fluids. Patient was most likely getting hypertensive because medications were held; we have restarted them so will watch his blood pressure. Have started patient on 1/2 NS right now, but I imagine his blood pressure will be fine with his new medications. Plan # Acute Lacunar CVA # Dizziness, possibly 2/2 Acute Stroke vs Orthostatics vs Poor PO Intake # HTN # DM # AMANDA, likely 2/2 poor po intake VS hypertension Permissive hypertension no longer necessary; We appreciate neuro recommendations and will continue with ASA and Plavix. Will follow up on ECHO. For patient's HTN, we have restarted home medications, but will add hydralazine prn for BP > 180/100. Will add renal ultrasound. For patient's DM2, we will continue sliding scale insulin. For HLD, we will continue with Lipitor 40, his home medications. For AMANDA, we will continue to avoid nephrotoxic agents and provide fluid hydration. Patient's records were requested from [facility], they are still pending. MR number is [phone] <Christal Casey - Last Filed: 09/01/18 12:46> Objective - Vital Signs/Intake and Output Vital Signs (last 24 hours): Temp Pulse Resp BP Pulse Ox 98.8 F 72 20 215/80 H 98 09/01/18 08:09 09/01/18 08:09 09/01/18 08:09 09/01/18 08:09 09/01/18 08:09 Intake and Output: 09/01/18 09/01/18 06:59 18:59 Intake Total 1440 Balance 1440 - Medications Medications: Current Medications Amlodipine Besylate (Norvasc) 5 mg PO DAILY [facility] Last Admin: 09/01/18 09:35 Dose: 5 mg Aspirin (Ecotrin) 81 mg PO DAILY [facility] Last Admin: 09/01/18 09:35 Dose: 81 mg Atorvastatin Calcium (Lipitor) 40 mg PO DIN [facility] Last Admin: 08/31/18 17:09 Dose: 40 mg Clopidogrel Bisulfate (Plavix) 75 mg PO DAILY [facility] Last Admin: 09/01/18 09:35 Dose: 75 mg Enoxaparin Sodium (Lovenox) 30 mg SC DAILY [facility]; Protocol Hydralazine HCl (Apresoline) 10 mg IVP Q6 PRN PRN Reason: SBP > 180 DBP > 100 Last Admin: 09/01/18 09:07 Dose: 10 mg Ceftriaxone Sodium (Rocephin 1 Gram Ivpb) 1 gm in 100 mls @ 100 mls/hr IVPB [facility]ILY [facility] Last Admin: 09/01/18 09:34 Dose: 100 mls/hr Sodium Chloride (Sodium Chloride 0.45%) 1,000 mls @ 100 mls/hr IV .Q10H [facility] Stop: 09/02/18 23:59 Insulin Human Regular (Humulin R Low) 0 units SC [facility]; Protocol Last Admin: 09/01/18 12:16 Dose: 2 units Lisinopril (Zestril) 20 mg PO DAILY [facility] Last Admin: 09/01/18 09:35 Dose: 20 mg - Labs Labs: 09/01/18 05:30 09/01/18 05:30 PT 11.0 SECONDS (9.4-12.5) 08/29/18 21:06 INR 0.99 08/29/18 21:06 APTT 37.3 Seconds (26.9-38.3) 08/29/18 21:06 Attending/Attestation - Attestation I have personally seen and examined this patient.: Yes I have fully participated in the care of the patient.: Yes I have reviewed all pertinent clinical information, including history, physical exam and plan: Yes Notes (Text): 09/01/18 12:43 78 year old male with past medical history of hypertension and diabetes who presented with complaint of dizziness. Found to have uncontrolled hypertension and AMANDA. Daughter also states patient had recent admission for similar complaints found to have orthostatic hypotension. Requested prior records from recent hospitalization which is still pending. Patient was started on IVF with improvement of renal function. Suspect underlying CKD. Will obtain renal ultrasound. Orthostatics positive on this admission. CT head was reviewed. MRA H/N was negative. MRI brain showed small acute left infarct in the left periatrial white matter. Echocardiogram is pending. Patient is on aspirin, plavix and statin. Neurology and PT are following. UA/CXR reviewed however patient does not have symptoms of UTI or pneumonia. This morning patient still has uncontrolled hypertension (215/80). He is on lisinopril. Norvasc and hydralazine prn are added. Possible d/c planning tomorrow if blood pressure and renal function improve. Christal Casey MD Hospitalist.
--- NOTE | 2018-09-01 15:28 | US ---
Date of service: 09/01/2018 PROCEDURE: Ultrasound of the Kidneys HISTORY: HTN, AMANDA COMPARISON: None available. TECHNIQUE: Sonogram of the kidneys. FINDINGS: RIGHT KIDNEY: Measures: 9.7 cm. Normal in size, contour and echogenicity. No stone, solid mass lesion or hydronephrosis visualized. LEFT KIDNEY: Measures: 10.0 cm. Normal in size, contour and echogenicity. No stone, solid mass lesion or hydronephrosis visualized. OTHER FINDINGS: None. IMPRESSION: Unremarkable renal sonogram.
[2018-09-01] MEDS: Sodium Chloride 0.45% 1,000 ML IV SCH (16:38)
[2018-09-02] MEDS: Sodium Chloride 0.45% 1,000 ML IV SCH ×2 (02:27→09:21)
[2018-09-02 07:21] LABS: BASO # 0.01 K/mm3 (0.0-2.0); BASO % 0.2 % (0.0-3.0); EOS # 0.1 (0.0-0.7); HEMOGLOBIN 10.9 g/dL (14.0-18.0); LYMPH # 1.1 (1.2-3.4); LYMPH % 18.7 % (22.0-35.0); MEAN CORPUSCULAR HEMOGLOBIN 30.2 pg (25.0-35.0); MEAN CORPUSCULAR HGB CONC 33.5 g/dl (31.0-37.0); MEAN PLATELET VOLUME 9.5 fl (7.0-11.0); MONO # 0.2 (0.1-0.6); RBC 3.61 10^6/uL (3.5-6.1); RED CELL DISTRIBUTION WIDTH 12.5 % (11.5-14.5)
[2018-09-02 07:59] LABS: ALB/GLOB RATIO 1.4 (1.1-1.8); ALBUMIN 4.3 g/dL (3.0-4.8); CALCIUM 9.6 mg/dL (8.4-10.5)
[2018-09-02] MEDS: Insulin Reg-LOW-Coverage SC SCH ×2 (09:20→13:11)
[2018-09-02] MEDS ORDERED: Cefpodoxime (Vantin) 200 mg Tab PO SCH (10:00)
[2018-09-02] MEDS ORDERED: Enoxaparin 30 mg Syringe SC SCH (10:00)
[2018-09-02 15:54] VITALS: BP 146/71; PULSE 84; RESP 16; TEMP 99.2
--- NOTE | 2018-09-02 16:02 | CP.PCM.DIS ---
<Rell Olmos - Last Filed: 09/02/18 15:55> Provider - Provider Date of Admission: 08/31/18 12:32 Attending physician: Christal Casey MD Primary care physician: NO FAMILY PROVIDER Consults: 08/29/18 19:53 Case Management Referral Routine Comment: Physician Instructions: Reason For Exam: Reason for Referral: Discharge Planning 08/29/18 20:08 Physician Consult Routine Comment: Consulting Provider: Stanley Love Consulting Physician: Stanley Love Reason for Consult: dizziness 08/30/18 01:15 Social Work Referral Routine Comment: ELIAZAR SCORE 7 Physician Instructions: Reason For Exam: PROTOCOL Time Spent in preparation of Discharge (in minutes): 45 Hospital Course - Lab Results Lab Results: Micro Results 08/29/18 21:30 Blood Blood Culture - Preliminary NO GROWTH AFTER 3 DAYS Most Recent Lab Values WBC 6.0 10^3/uL (4.5-11.0) 09/02/18 07:00 RBC 3.61 10^6/uL (3.5-6.1) 09/02/18 07:00 Hgb 10.9 g/dL (14.0-18.0) L 09/02/18 07:00 Hct 32.5 % (42.0-52.0) L 09/02/18 07:00 MCV 90.0 fl (80.0-105.0) 09/02/18 07:00 MCH 30.2 pg (25.0-35.0) 09/02/18 07:00 MCHC 33.5 g/dl (31.0-37.0) 09/02/18 07:00 RDW 12.5 % (11.5-14.5) 09/02/18 07:00 Plt Count 199 10^3/uL (120.0-450.0) 09/02/18 07:00 MPV 9.5 fl (7.0-11.0) 09/02/18 07:00 Neut % (Auto) 76.1 % (50.0-68.0) H 09/02/18 07:00 Lymph % (Auto) 18.7 % (22.0-35.0) L 09/02/18 07:00 Edgar % (Auto) 4.0 % (1.0-6.0) 09/02/18 07:00 Eos % (Auto) 1.0 % (1.5-5.0) L 09/02/18 07:00 Baso % (Auto) 0.2 % (0.0-3.0) 09/02/18 07:00 Lymph # (Auto) 1.1 (1.2-3.4) L 09/02/18 07:00 Edgar # (Auto) 0.2 (0.1-0.6) 09/02/18 07:00 Eos # (Auto) 0.1 (0.0-0.7) 09/02/18 07:00 Baso # (Auto) 0.01 K/mm3 (0.0-2.0) 09/02/18 07:00 Absolute Neuts (auto) 4.60 (1.4-6.5) 09/02/18 07:00 PT 11.0 SECONDS (9.4-12.5) 08/29/18 21:06 INR 0.99 08/29/18 21:06 APTT 37.3 Seconds (26.9-38.3) 08/29/18 21:06 Sodium 141 mmol/L (132-148) 09/02/18 07:00 Potassium 4.7 mmol/L (3.6-5.0) 09/02/18 07:00 Chloride 109 mmol/L (98-107) H 09/02/18 07:00 Carbon Dioxide 23 mmol/L (21-33) 09/02/18 07:00 Anion Gap 14 (10-20) 09/02/18 07:00 BUN 31 mg/dL (7-21) H 09/02/18 07:00 Creatinine 1.5 mg/dl (0.8-1.5) 09/02/18 07:00 Est GFR ( Amer) 55 09/02/18 07:00 Est GFR (Non-Af Amer) 46 09/02/18 07:00 POC Glucose (mg/dL) 236 mg/dL (65-110) H 09/02/18 11:47 Random Glucose 257 mg/dL (70-110) H 09/02/18 07:00 Hemoglobin A1c 7.2 % (4.2-6.5) H 08/30/18 06:00 Calcium 9.6 mg/dL (8.4-10.5) 09/02/18 07:00 Phosphorus 3.3 mg/dL (2.5-4.5) 09/01/18 05:30 Magnesium 2.1 mg/dL (1.7-2.2) 09/01/18 05:30 Iron 90 ug/dL (45-180) 08/30/18 06:00 TIBC 276 ug/dL (261-462) 08/30/18 06:00 % Saturation 33 % (20-55) 08/30/18 06:00 Ferritin 27.7 ng/mL 08/30/18 06:00 Total Bilirubin 0.3 mg/dL (0.2-1.3) 09/02/18 07:00 AST 56 U/L (17-59) 09/02/18 07:00 ALT 56 U/L (7-56) 09/02/18 07:00 Alkaline Phosphatase 75 U/L (38-126) 09/02/18 07:00 Troponin I < 0.01 ng/mL 08/30/18 06:00 Total Protein 7.5 g/dL (5.8-8.3) 09/02/18 07:00 Albumin 4.3 g/dL (3.0-4.8) 09/02/18 07:00 Globulin 3.2 gm/dL 09/02/18 07:00 Albumin/Globulin Ratio 1.4 (1.1-1.8) 09/02/18 07:00 Triglycerides 61 mg/dL (35-160) 08/31/18 06:30 Cholesterol 115 mg/dL (130-200) L 08/31/18 06:30 LDL Cholesterol Direct 66 mg/dL (0-129) 08/31/18 06:30 HDL Cholesterol 34 mg/dL (29-60) 08/31/18 06:30 Vitamin B12 272 pg/mL (239-931) 08/31/18 06:30 25-OH Vitamin D Total 30 ng/mL (30-100) 08/31/18 06:30 Folate 11.0 ng/mL 08/31/18 06:30 Procalcitonin < 0.05 NG/ML (0.19-0.49) L 08/29/18 21:25 Free T4 1.25 ng/dL (0.78-2.19) 08/31/18 06:30 Thyroxine (T4) 7.0 ug/dL (5.5-11.0) 08/31/18 06:30 Free T3 pg/mL 3.02 pg/mL (2.77-5.27) 08/31/18 06:30 Total T3 1.17 ng/mL (0.97-1.69) 08/31/18 06:30 TSH 3rd Generation 2.15 mIU/mL (0.46-4.68) 08/31/18 06:30 Urine Color Yellow (YELLOW) 08/29/18 15:41 Urine Appearance Clear (CLEAR) 08/29/18 15:41 Urine pH 5.5 (4.7-8.0) 08/29/18 15:41 Ur Specific [place] >= 1.030 (1.005-1.035) 08/29/18 15:41 Urine Protein 100 mg/dL (<30 mg/dL) H 08/29/18 15:41 Urine Glucose (UA) Negative mg/dL (NEGATIVE) 08/29/18 15:41 Urine Ketones Trace mg/dL (NEGATIVE) H 08/29/18 15:41 Urine Blood Negative (NEGATIVE) 08/29/18 15:41 Urine Nitrate Negative (NEGATIVE) 08/29/18 15:41 Urine Bilirubin Negative (NEGATIVE) 08/29/18 15:41 Urine Urobilinogen 0.2 E.U./dL (<1 E.U./dL) 08/29/18 15:41 Ur Leukocyte Esterase Small Zuly/uL (NEGATIVE) H 08/29/18 15:41 Urine RBC TEST NOT PERFORMED 08/29/18 15:41 Urine WBC 5 - 10 /hpf (0-6) H 08/29/18 15:41 Ur Epithelial Cells 10 - 12 /hpf (0-5) H 08/29/18 15:41 Influenza Typ A,B (EIA) Negative for flu a/b (NEGATIVE) 08/29/18 20:46 - Hospital Course Hospital Course: 78-year-old male has medical history of hypertension, diabetes presented to the [facility] with complaints of dizziness. Had recently been discharged from [facility] with someone complains and have been diagnosed with orthostatic hypotension. During his admission here the patient had an MRI brain and had a head and neck MRA which showed a left-sided periatrial lacunar stroke. Patient was started on aspirin and Plavix. We changed his home blood pressure medications from hydrochlorothiazide, lisinopril, Norvasc 10, to lisinopril, Norvasc five, and discontinued his hydrochlorthiazide. We monitored patients blood pressure while he was here because he tended to be hypertensive. We had started patient on fluids due to an a.k.a. which resolved. And Madhu discharge patients fluids were discontinued his blood pressure held steady and patient was deemed stable for discharge. Discharge Exam - Head Exam Head Exam: ATRAUMATIC, NORMAL INSPECTION, NORMOCEPHALIC - Eye Exam Eye Exam: EOMI, Normal appearance, PERRL Pupil Exam: NORMAL ACCOMODATION, PERRL - Respiratory Exam Respiratory Exam: Clear to PA & Lateral, NORMAL BREATHING PATTERN, UNREMARKABLE - Cardiovascular Exam Cardiovascular Exam: REGULAR RHYTHM, RRR, +S1, +S2 - GI/Abdominal Exam GI & Abdominal Exam: Normal Bowel Sounds - Neurological Exam Neurological exam: Alert, CN II-XII Intact, Normal Gait, Oriented x3, Reflexes Normal - Psychiatric Exam Psychiatric exam: Normal Affect, Normal Mood - Skin Skin Exam: Dry, Intact, Normal Color, Warm Discharge Plan - Discharge Medications Prescriptions: amLODIPine [Norvasc] 5 mg PO DAILY #30 tab Aspirin [Ecotrin] 81 mg PO DAILY #30 tabec Atorvastatin [Lipitor] 40 mg PO DIN #30 tab Clopidogrel [Plavix] 75 mg PO DAILY #30 tab Lisinopril [Zestril] 20 mg PO DAILY #30 tab - Follow Up Plan Condition: STABLE Disposition: HOME/ ROUTINE Instructions: Stroke, Urinary Tract Infection in Women (DC), Urinary Tract Infection in Men (DC), Dysuria (GEN) Additional Instructions: Please note - on this admission, you were diagnosed with a small stroke - (Periatrial L sided Acute Lacunar Infarct). This was contributing to your overall clinical picture. You MUST take Aspirin and Plavix on a daily basis. Please follow up with a neurologist outpatient. The Neurologist who saw you here is Dr. Love. His information is attached. Please take your new blood pressure medications as prescribed. Do NOT take the hydrochlorothiazide anymore. Please continue to stay hydrated and drink plenty of water. If your symptoms persist or worsen please return to the nearest ED. Referrals: Stanley Love MD [Staff Provider] - FAMILY PROVIDER,NO [Primary Care Provider] - <Brielle Stewart - Last Filed: 09/03/18 13:32> Provider - Provider Date of Admission: 08/31/18 12:32 Attending physician: Christal Casey MD Primary care physician: MARIBELL FAMILY PROVIDER Consults: 08/29/18 19:53 Case Management Referral Routine Comment: Physician Instructions: Reason For Exam: Reason for Referral: Discharge Planning 08/29/18 20:08 Physician Consult Routine Comment: Consulting Provider: Stanley Love Consulting Physician: Stanley Love Reason for Consult: dizziness 08/30/18 01:15 Social Work Referral Routine Comment: ELIAZAR SCORE 7 Physician Instructions: Reason For Exam: PROTOCOL Hospital Course - Lab Results Lab Results: Micro Results 08/29/18 21:30 Blood Blood Culture - Preliminary NO GROWTH AFTER 4 DAYS Most Recent Lab Values WBC 6.0 10^3/uL (4.5-11.0) 09/02/18 07:00 RBC 3.61 10^6/uL (3.5-6.1) 09/02/18 07:00 Hgb 10.9 g/dL (14.0-18.0) L 09/02/18 07:00 Hct 32.5 % (42.0-52.0) L 09/02/18 07:00 MCV 90.0 fl (80.0-105.0) 09/02/18 07:00 MCH 30.2 pg (25.0-35.0) 09/02/18 07:00 MCHC 33.5 g/dl (31.0-37.0) 09/02/18 07:00 RDW 12.5 % (11.5-14.5) 09/02/18 07:00 Plt Count 199 10^3/uL (120.0-450.0) 09/02/18 07:00 MPV 9.5 fl (7.0-11.0) 09/02/18 07:00 Neut % (Auto) 76.1 % (50.0-68.0) H 09/02/18 07:00 Lymph % (Auto) 18.7 % (22.0-35.0) L 09/02/18 07:00 Edgar % (Auto) 4.0 % (1.0-6.0) 09/02/18 07:00 Eos % (Auto) 1.0 % (1.5-5.0) L 09/02/18 07:00 Baso % (Auto) 0.2 % (0.0-3.0) 09/02/18 07:00 Lymph # (Auto) 1.1 (1.2-3.4) L 09/02/18 07:00 Edgar # (Auto) 0.2 (0.1-0.6) 09/02/18 07:00 Eos # (Auto) 0.1 (0.0-0.7) 09/02/18 07:00 Baso # (Auto) 0.01 K/mm3 (0.0-2.0) 09/02/18 07:00 Absolute Neuts (auto) 4.60 (1.4-6.5) 09/02/18 07:00 PT 11.0 SECONDS (9.4-12.5) 08/29/18 21:06 INR 0.99 08/29/18 21:06 APTT 37.3 Seconds (26.9-38.3) 08/29/18 21:06 Sodium 141 mmol/L (132-148) 09/02/18 07:00 Potassium 4.7 mmol/L (3.6-5.0) 09/02/18 07:00 Chloride 109 mmol/L (98-107) H 09/02/18 07:00 Carbon Dioxide 23 mmol/L (21-33) 09/02/18 07:00 Anion Gap 14 (10-20) 09/02/18 07:00 BUN 31 mg/dL (7-21) H 09/02/18 07:00 Creatinine 1.5 mg/dl (0.8-1.5) 09/02/18 07:00 Est GFR ( Amer) 55 09/02/18 07:00 Est GFR (Non-Af Amer) 46 09/02/18 07:00 POC Glucose (mg/dL) 208 mg/dL (65-110) H 09/02/18 15:53 Random Glucose 257 mg/dL (70-110) H 09/02/18 07:00 Hemoglobin A1c 7.2 % (4.2-6.5) H 08/30/18 06:00 Calcium 9.6 mg/dL (8.4-10.5) 09/02/18 07:00 Phosphorus 3.3 mg/dL (2.5-4.5) 09/01/18 05:30 Magnesium 2.1 mg/dL (1.7-2.2) 09/01/18 05:30 Iron 90 ug/dL (45-180) 08/30/18 06:00 TIBC 276 ug/dL (261-462) 08/30/18 06:00 % Saturation 33 % (20-55) 08/30/18 06:00 Ferritin 27.7 ng/mL 08/30/18 06:00 Total Bilirubin 0.3 mg/dL (0.2-1.3) 09/02/18 07:00 AST 56 U/L (17-59) 09/02/18 07:00 ALT 56 U/L (7-56) 09/02/18 07:00 Alkaline Phosphatase 75 U/L (38-126) 09/02/18 07:00 Troponin I < 0.01 ng/mL 08/30/18 06:00 Total Protein 7.5 g/dL (5.8-8.3) 09/02/18 07:00 Albumin 4.3 g/dL (3.0-4.8) 09/02/18 07:00 Globulin 3.2 gm/dL 09/02/18 07:00 Albumin/Globulin Ratio 1.4 (1.1-1.8) 09/02/18 07:00 Triglycerides 61 mg/dL (35-160) 08/31/18 06:30 Cholesterol 115 mg/dL (130-200) L 08/31/18 06:30 LDL Cholesterol Direct 66 mg/dL (0-129) 08/31/18 06:30 HDL Cholesterol 34 mg/dL (29-60) 08/31/18 06:30 Vitamin B12 272 pg/mL (239-931) 08/31/18 06:30 25-OH Vitamin D Total 30 ng/mL (30-100) 08/31/18 06:30 Folate 11.0 ng/mL 08/31/18 06:30 Procalcitonin < 0.05 NG/ML (0.19-0.49) L 08/29/18 21:25 Free T4 1.25 ng/dL (0.78-2.19) 08/31/18 06:30 Thyroxine (T4) 7.0 ug/dL (5.5-11.0) 08/31/18 06:30 Free T3 pg/mL 3.02 pg/mL (2.77-5.27) 08/31/18 06:30 Total T3 1.17 ng/mL (0.97-1.69) 08/31/18 06:30 TSH 3rd Generation 2.15 mIU/mL (0.46-4.68) 08/31/18 06:30 Urine Color Yellow (YELLOW) 08/29/18 15:41 Urine Appearance Clear (CLEAR) 08/29/18 15:41 Urine pH 5.5 (4.7-8.0) 08/29/18 15:41 Ur Specific [place] >= 1.030 (1.005-1.035) 08/29/18 15:41 Urine Protein 100 mg/dL (<30 mg/dL) H 08/29/18 15:41 Urine Glucose (UA) Negative mg/dL (NEGATIVE) 08/29/18 15:41 Urine Ketones Trace mg/dL (NEGATIVE) H 08/29/18 15:41 Urine Blood Negative (NEGATIVE) 08/29/18 15:41 Urine Nitrate Negative (NEGATIVE) 08/29/18 15:41 Urine Bilirubin Negative (NEGATIVE) 08/29/18 15:41 Urine Urobilinogen 0.2 E.U./dL (<1 E.U./dL) 08/29/18 15:41 Ur Leukocyte Esterase Small Zuly/uL (NEGATIVE) H 08/29/18 15:41 Urine RBC TEST NOT PERFORMED 08/29/18 15:41 Urine WBC 5 - 10 /hpf (0-6) H 08/29/18 15:41 Ur Epithelial Cells 10 - 12 /hpf (0-5) H 08/29/18 15:41 Influenza Typ A,B (EIA) Negative for flu a/b (NEGATIVE) 08/29/18 20:46 Attending/Attestation - Attestation I have personally seen and examined this patient.: Yes I have fully participated in the care of the patient.: Yes I have reviewed all pertinent clinical information, including history, physical exam and plan: Yes Notes (Text): 09/03/18 13:27 Attending note; Patient seen and examined with resident. Translation used. Patient is alert and awake. Denies any headache, nausea, vomiting. Ambulating without any difficulty. Denies any dizziness. Patient is a 78 year old male with past medical history of hypertension and diabetes who presented with complaint of dizziness. 1. uncontrolled hypertension; currently on lisinopril and amlodipine. 2. Acute renal insufficiency; creatinine is back to baseline. Needs close outpatient follow-up. 3. No significant orthostatic changes noted. Ambulating without difficulty. CT head showed chronic infarct. MRI of the brain showed small acute left MRA of head and neck is negative. MRI brain showed small acute left infarct in the left parietal white matter . Neurology evaluation appreciated. patient is on aspirin, plavix and statin. Physical therapy evaluation appreciated. Discharge home today. Needs close follow-up with PMD in [place]. Diagnosis and discharge plan discussed with patient's family in detail.
--- NOTE | 2018-09-03 07:44 | CARD ---
APPROVED REPORT Date of service: 09/01/2018 EXAM: Two-dimensional and M-mode echocardiogram with Doppler and color Doppler. INDICATION DIZZINESS 2D DIMENSIONS Left Atrium (2D)3.5 (1.6-4.0cm)IVSd1.1 (0.7-1.1cm) LVDd4.3 (3.9-5.9cm)PWd1.2 (0.7-1.1cm) LVDs2.9 (2.5-4.0cm)FS (%) 32.4 % LVEF (%)61.0 (>50%) M-Mode DIMENSIONS Aortic Root2.50 (2.2-3.7cm)Aortic Cusp Exc.1.70 (1.5-2.0cm) Aortic Valve AoV Peak Jvzegapz991.0cm/Amauri Peak GR.12mmHg Mitral Valve MV E Bypqmrmi19.4cm/sMV A Gbeguzhe67.5cm/sE/A ratio0.8 TDI E/Lateral E'0.0E/Medial E'0.0 Tricuspid Valve TR Peak [id number]/sRAP [id number] Peak Gr.12mmHg [id number] LEFT VENTRICLE The left ventricle is normal size. There is borderline concentric left ventricular hypertrophy. The left ventricular function is normal. The left ventricular ejection fraction is within the normal range. There is normal LV segmental wall motion. RIGHT VENTRICLE The right ventricle is normal size. The right ventricular systolic function is normal. ATRIA The left atrium size is normal. The right atrium size is normal. The interatrial septum is intact with no evidence for an atrial septal defect. AORTIC VALVE The aortic valve is normal in structure. No aortic regurgitation is present. There is no aortic valvular stenosis. GREAT VESSELS The aortic root is normal in size. The IVC is normal in size and collapses >50% with inspiration. PERICARDIAL EFFUSION There is no pleural effusion. There is no pericardial effusion. <Conclusion> Normal chamber size. Borderline concentric LVH. Normal LV systolic function.
== END 2018-09-02 17:32 | disposition home or self-care (01) | DRG 45 ==
LOC: ED 14:38 → ERH 18:45 → 3RNO 20:47 → OBSVTOIN 08-31 12:32
PROVIDERS: ADMIT Internal Medicine; ATTEND Internal Medicine
DX: I63.9 Cerebral infarction, unspecified (principal); N17.9 Acute kidney failure, unspecified; E11.22 Type 2 diabetes mellitus with diabetic chronic kidney disease; E11.65 Type 2 diabetes mellitus with hyperglycemia; N18.9 Chronic kidney disease, unspecified; E86.0 Dehydration; I12.9 Hypertensive chronic kidney disease with stage 1 through stage 4 chronic kidney disease, or unspecified chronic kidney disease; E78.5 Hyperlipidemia, unspecified; I95.1 Orthostatic hypotension